=== PATIENT | male | born 1965 | race African-American/Black ===

== ENCOUNTER 2022-10-23 10:03 | Emergency (ER) | payer SELFPAY ==
[~2022-10-23] VITALS: Ht 185.4 cm; Wt 95.3 kg
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
--- NOTE | 2022-10-23 10:37 | NUR ---
DR. ADAMS AT BEDSIDE.
--- NOTE | 2022-10-23 10:40 | NUR ---
Patient discharged to home in stable condition. Written and verbal after care instructions given. Patient verbalizes understanding of instruction.
[2022-10-23 10:42] VITALS: BP 137/90
== END 2022-10-23 10:43 | disposition home or self-care (01) ==
LOC: ER 10:03
DX: M54.2 Cervicalgia (principal); M54.9 Dorsalgia, unspecified; I10 Essential (primary) hypertension; V89.2XXA Person injured in unspecified motor-vehicle accident, traffic, initial encounter; Y93.89 Activity, other specified; Y92.89 Other specified places as the place of occurrence of the external cause; Y99.8 Other external cause status